=== PATIENT | male | born 1970 | race Caucasian/White ===

== ENCOUNTER 2016-12-19 12:09 | Emergency (ER) | payer MEDICAID ==
[2016-12-19 12:57] LABS: BASO % 0.5 % (0.0-1.0); EOS # 0.3 K/mm3 (0.0-0.50); EOS % 4.6 % (0.0-3.0); LARGE UNSTAINED CELL # 0.2 K/mm3 (0.0-0.4); LARGE UNSTAINED CELL % 2.1 % (0.0-4.0); LYMPH # 1.9 K/mm3 (1.5-4.5); MEAN CORPUSCULAR HEMOGLOBIN 32.2 pg (27.0-33.0); MEAN CORPUSCULAR HGB CONC 34.8 g/dl (32.0-36.5); MEAN CORPUSCULAR VOLUME 92.4 fl (80.0-96.0); MONO # 0.5 K/mm3 (0.0-0.8); NEUTROPHILS # 4.5 K/mm3 (1.8-7.7); NEUTROPHILS % 60.7 % (36.0-66.0); PLATELET COUNT, AUTOMATED 226 k/mm3 (150-450); RED CELL DISTRIBUTION WIDTH 11.7 % (11.5-14.5); WHITE BLOOD COUNT 7.4 K/mm3 (4.0-10.0)
[2016-12-19 13:17] LABS: ALBUMIN/GLOBULIN RATIO 1.25 (1.00-1.93); ALKALINE PHOSPHATASE 71 U/L (45-117); ALT/SGPT 43 U/L (12-78); ANION GAP 7 MEQ/L (8-16); AST/SGOT 24 U/L (15-37); BILIRUBIN,DIRECT 0.1 MG/DL (0.0-0.2); BILIRUBIN,TOTAL 0.5 MG/DL (0.2-1.0); BLOOD UREA NITROGEN 14 MG/DL (7-18); CALCIUM LEVEL 8.5 MG/DL (8.5-10.1); CARBON DIOXIDE LEVEL 27 MEQ/L (21-32); CHLORIDE LEVEL 108 MEQ/L (98-107); CREATININE FOR GFR 0.89 MG/DL (0.70-1.30); GLOMERULAR FILTRATION RATE > 60.0 (>60); GLUCOSE, FASTING 91 MG/DL (70-105); POTASSIUM SERUM 4.1 MEQ/L (3.5-5.1); SODIUM LEVEL 142 MEQ/L (136-145); TOTAL PROTEIN 7.2 GM/DL (6.4-8.2)
[2016-12-19] MEDS ORDERED: KETOROLAC 30 MG/ML VIAL (J1885) As Ordered ONE (14:38)
[2016-12-19] MEDS ORDERED: ONDANSETRON 4MG/2ML VIAL (J2405) As Ordered ONE (14:38)
[2016-12-19 17:12] LABS: AMYLASE 62 U/L (25-115)
--- NOTE | 2016-12-19 19:42 | EDDOCDS ---
Nurse's Notes [facility] Name: Karan Mejía Age: 46 yrs Sex: Male : 1970 Arrival Date: 12/19/2016 Time: 12:09 Bed I5 / M5 Private MD: NO PRIMARY PHYSICIAN, . Diagnosis: Other abdominal pain-llq;Diarrhea, unspecified Presentation: 12/19 12:20 Presenting complaint: Patient states: "I have a pain in my left side lower abdomen". jf3 Pain started approx 2 weeks ago and have gotten progressively worse. Reports diarrhea x2 weeks, denies N/V. Adult Sepsis Screening: The patient does not have new or worsening altered mentation. Patient's respiratory rate is less than 22. Systolic blood pressure is greater than 100. Patient has a qSOFA score of 0- Negative Sepsis Screen. Suicide/Homicide risk assessment- the patient denies having any suicidal and/or homicidal ideations and does not present with any other emotional, behavioral or mental health complaints. Status: Patient is not a services executive or dependent. Transition of care: patient was not received from another setting of care. 12:20 Acuity: CLAUDIA Level 3 jf3 12:20 Method Of Arrival: Walkin/Carried/Asstd jf3 Triage Assessment: 12:23 General: Appears in no apparent distress, comfortable, Behavior is cooperative. Pain: jf3 Location: left lower quadrant Pain currently is 6 out of 10 on a pain scale. Pt Declines HIV testing. GI: Abdomen is non- distended Reports diarrhea, lower abdominal pain, Pain is 6 out of 10 on a pain scale. Denies nausea, vomiting. Historical: - Allergies: no known allergies; - Home Meds: 1. none - PMHx: none; - PSHx: none; - Social history: Smoking status: Patient uses tobacco products, heavy tobacco smoker. No barriers to communication noted, The patient speaks fluent Georgian. - Family history: Not pertinent. - : The pt / caregiver states he / she is not on anticoagulants. Home medication list is obtained from the patient. - Exposure Risk Screening:: None identified. Screenin:34 Screening information is obtained from the patient. Primary language is Georgian. Fall jam1 risk: No risks identified. Assistance ADL's: requires no assistance with activities of daily living. Abuse/DV Screen: The patient / caregiver reports he/she is: not in a situation that causes fear, pain or injury. Nutritional screening: No deficits noted. Exposure Risk Screening: None identified. Advance Directives: Currently, there is no health care proxy. There is no active DNR order. There is no living will. There is no Power of Inspector Returned Materials. Advance directive information has not previously been placed in an [facility] medical record. Further advance directive information is declined. home support is adequate. Assessment: 14:46 General: Appears in no apparent distress, comfortable, Behavior is appropriate for age, dsf cooperative, laughing . Pain: Location: left upper quadrant Pain currently is 6 out of 10 on a pain scale. Quality of pain is described as just hurts. Neurological: Level of Consciousness is awake, alert, Oriented to person, place, time. Cardiovascular: Capillary refill < 3 seconds Heart tones S1 S2 present. Respiratory: Airway is patent Respiratory effort is even, unlabored, Respiratory pattern is regular, symmetrical, Breath sounds are clear bilaterally. GI: Abdomen is non- distended Bowel sounds present X 4 quads. Abd is soft X 4 quads Abd is tender to palpation in left upper quadrant. Derm: Skin is pink, warm & dry. 14:47 General: pt refused IV and IV medications. provider notified . dsf 15:46 General: Appears in no apparent distress, comfortable, Behavior is appropriate for age, dsf cooperative. Neurological: Level of Consciousness is awake, alert. Cardiovascular: Capillary refill < 3 seconds. Respiratory: Airway is patent Respiratory effort is even, unlabored, Respiratory pattern is regular, symmetrical. Derm: Skin is pink, warm & dry. 16:46 Adult Sepsis Screening: The patient does not have new or worsening altered mentation. dsf Patient's respiratory rate is less than 22. Systolic blood pressure is greater than 100. Patient has a qSOFA score of 0- Negative Sepsis Screen. General: Appears in no apparent distress, Behavior is appropriate for age, cooperative. Neurological: Level of Consciousness is awake, alert. Cardiovascular: Capillary refill < 3 seconds. Respiratory: Airway is patent Respiratory effort is even, unlabored, Respiratory pattern is regular, symmetrical. Derm: Skin is pink, warm & dry. 17:45 General: Appears in no apparent distress, comfortable, Behavior is appropriate for age, dsf cooperative. Pain: Location: left upper quadrant. Neurological: Level of Consciousness is awake, alert. Cardiovascular: Capillary refill < 3 seconds. Respiratory: Airway is patent Respiratory effort is even, unlabored, Respiratory pattern is regular, symmetrical. Derm: Skin is pink, warm & dry. 18:28 Adult Sepsis Screening: The patient does not have new or worsening altered mentation. dsf Patient's respiratory rate is less than 22. Systolic blood pressure is greater than 100. Patient has a qSOFA score of 0- Negative Sepsis Screen. General: Appears in no apparent distress, comfortable, Behavior is appropriate for age, cooperative. Pain: Location: left upper quadrant Pain currently is 3 out of 10 on a pain scale. Neurological: Level of Consciousness is awake, alert, Oriented to person, place, time. Cardiovascular: Capillary refill < 3 seconds Heart tones S1 S2 present. Respiratory: Airway is patent Respiratory effort is even, unlabored, Respiratory pattern is regular, symmetrical, Breath sounds are clear bilaterally. GI: Abdomen is non- distended Bowel sounds present X 4 quads. Abd is soft and non tender X 4 quads. Derm: Skin is pink, warm & dry. 18:54 General: Dr. Gutierrez in room examining patient . dsf 19:39 General: Appears in no apparent distress, comfortable, Behavior is appropriate for age, cjh cooperative, denies pain and awaiting discharge, reviewed instructions with patient who verbalizes understanding, denies further needs and declines offer of additional assistance. Vital Signs: 12:11 BP 113 / 79; Pulse 73; Resp 18 S; Temp 97.6(O); Pulse Ox 99% on R/A; Weight 79.38 kg gr2 (R); Height 5 ft. 8 in. (172.72 cm) (R); Pain 7/10; 17:36 BP 125 / 72; Pulse 72; Resp 20; Temp 98.0; Pulse Ox 99% ; Pain 4/10; jam1 19:32 BP 143 / 95; Pulse 75; Resp 20; Temp 99.8(TE); Pulse Ox 94% on R/A; Pain 0/10; kb5 12:11 Body Mass Index 26.61 (79.38 kg, 172.72 cm) gr2 Vitals: 12:11 Log In Time: December 19, 2016 at 12:11. gr2 ED Course: 12:10 Patient visited by Kacey Rios. gr2 12:10 Patient moved to Waiting gr2 12:11 NO PRIMARY PHYSICIAN, . is Private Physician. gr2 12:13 Patient visited by Kacey Rios. gr2 12:13 Patient moved to Pre RCE gr2 12:22 Triage Initiated jf3 12:45 Labs drawn. (by ED staff). Sent per order to lab. sew 12:46 Patient visited by Shante Chandler. sew 12:46 BMP Sent. sew 12:46 CBC with Diff Sent. sew 12:46 Lipase Sent. sew 12:46 Liver Profile Sent. sew 13:10 Patient moved to Triage 3 jf3 14:29 Arleth Crump PA-C is PHCP. ef1 14:29 Noel Haque MD is Attending Physician. ef1 14:29 Patient visited by Arleth Crump PA-C. ef1 14:34 Patient moved to I5 / M5 kr3 14:36 Urine Culture Sent. jf3 14:36 UA Sent. jf3 14:47 Patient visited by Smitha Morataya RN. dsf 14:53 [facility] Payment Agreement was scanned into [employer] and attached to record. jls1 15:29 Patient visited by Arleth Crump PA-C. ef1 16:18 Patient visited by Arleth Crump PA-C. ef1 16:[address] dsf 16:26 Patient moved to I5 / M5 dsf 16:40 Patient visited by Arleth Crump PA-C. ef1 17:12 Patient visited by Shakila Andrade PCA. jam1 17:29 Patient visited by Arleth Crump PA-C. ef1 17:45 Patient visited by Arleth Crump PA-C. ef1 17:51 PHCP role handed off by Arleth Crump PA-C dt4 17:51 Angelica Gonzalez PA-C is PHCP. dt4 18:29 Patient visited by Smitha Morataya RN. dsf 19:21 Robert Gutierrez is Referral Physician. dt4 19:21 [facility] is Referral Physician. dt4 19:33 Patient visited by Georges Quintero PCA. kb5 19:39 The patient / caregiver is instructed regarding the plan of care and ED course. cj 19:39 No IV's were initiated during this patient's visit. No procedures done that require [facility] assistance. Administered Medications: 14:46 Not Given (Patient Refused): NS 0.9% 1000 ml IV at bolus once dsf 14:46 Not Given (Patient Refused): ketorolac 30 mg IVP once dsf 14:46 Not Given (Patient Refused): Ondansetron 4 mg IVP once dsf Order Results: Lab Order: BMP; SPEC'M 12/19/16 12:45 Test: GLUCOSE, FASTING; Value: 91; Range: 70-105; Units: MG/DL; Status: F Test: BLOOD UREA NITROGEN; Value: 14; Range: 7-18; Units: MG/DL; Status: F Test: CREATININE FOR GFR; Value: 0.89; Range: 0.70-1.30; Units: MG/DL; Status: F Test: GLOMERULAR FILTRATION RATE; Value: > 60.0; Range: >60; Status: F Test: SODIUM LEVEL; Value: 142; Range: 136-145; Units: MEQ/L; Status: F Test: POTASSIUM SERUM; Value: 4.1; Range: 3.5-5.1; Units: MEQ/L; Status: F Test: CHLORIDE LEVEL; Value: 108; Range: 98-107; Abnormal: Above high normal; Units: MEQ/L; Status: F Test: CARBON DIOXIDE LEVEL; Value: 27; Range: 21-32; Units: MEQ/L; Status: F Test: ANION GAP; Value: 7; Range: 8-16; Abnormal: Below low normal; Units: MEQ/L; Status: F Test: CALCIUM LEVEL; Value: 8.5; Range: 8.5-10.1; Units: MG/DL; Status: F Test Note: ; Units are mL/min/1.73 m2 Chronic Kidney Disease Staging per NKF: Stage I & II GFR >=60 Normal to Mildly Decreased Stage III GFR 30-59 Moderately Decreased Stage IV GFR 15-29 Severely Decreased Stage V GFR <15 Very Little GFR Left ESRD GFR <15 on PLUG STITCHER Lab Order: CBC with Diff; SPEC'M 12/19/16 12:45 Test: WHITE BLOOD COUNT; Value: 7.4; Range: 4.0-10.0; Units: K/mm3; Status: F Test: RED BLOOD COUNT; Value: 4.78; Range: 4.30-6.10; Units: M/mm3; Status: F Test: HEMOGLOBIN; Value: 15.4; Range: 14.0-18.0; Units: g/dl; Status: F Test: HEMATOCRIT; Value: 44.2; Range: 42.0-52.0; Units: %; Status: F Test: MEAN CORPUSCULAR VOLUME; Value: 92.4; Range: 80.0-96.0; Units: fl; Status: F Test: MEAN CORPUSCULAR HEMOGLOBIN; Value: 32.2; Range: 27.0-33.0; Units: pg; Status: F Test: MEAN CORPUSCULAR HGB CONC; Value: 34.8; Range: 32.0-36.5; Units: g/dl; Status: F Test: RED CELL DISTRIBUTION WIDTH; Value: 11.7; Range: 11.5-14.5; Units: %; Status: F Test: PLATELET COUNT, AUTOMATED; Value: 226; Range: 150-450; Units: k/mm3; Status: F Test: NEUTROPHILS %; Value: 60.7; Range: 36.0-66.0; Units: %; Status: F Test: LYMPH %; Value: 25.0; Range: 24.0-44.0; Units: %; Status: F Test: MONO %; Value: 7.0; Range: 0.0-5.0; Abnormal: Above high normal; Units: %; Status: F Test: EOS %; Value: 4.6; Range: 0.0-3.0; Abnormal: Above high normal; Units: %; Status: F Test: BASO %; Value: 0.5; Range: 0.0-1.0; Units: %; Status: F Test: LARGE UNSTAINED CELL %; Value: 2.1; Range: 0.0-4.0; Units: %; Status: F Test: NEUTROPHILS #; Value: 4.5; Range: 1.8-7.7; Units: K/mm3; Status: F Test: LYMPH #; Value: 1.9; Range: 1.5-4.5; Units: K/mm3; Status: F Test: MONO #; Value: 0.5; Range: 0.0-0.8; Units: K/mm3; Status: F Test: EOS #; Value: 0.3; Range: 0.0-0.50; Units: K/mm3; Status: F Test: BASO #; Value: 0.0; Range: 0.0-0.2; Units: K/mm3; Status: F Test: LARGE UNSTAINED CELL #; Value: 0.2; Range: 0.0-0.4; Units: K/mm3; Status: F Lab Order: Lipase; [facility] 12/19/16 12:45 Test: LIPASE; Value: 160; Range: 73-393; Units: U/L; Status: F Lab Order: Liver Profile; [facility] 12/19/16 12:45 Test: AST/SGOT; Value: 24; Range: 15-37; Units: U/L; Status: F Test: ALT/SGPT; Value: 43; Range: 12-78; Units: U/L; Status: F Test: ALKALINE PHOSPHATASE; Value: 71; Range: 45-117; Units: U/L; Status: F Test: BILIRUBIN,TOTAL; Value: 0.5; Range: 0.2-1.0; Units: MG/DL; Status: F Test: BILIRUBIN,DIRECT; Value: 0.1; Range: 0.0-0.2; Units: MG/DL; Status: F Test: TOTAL PROTEIN; Value: 7.2; Range: 6.4-8.2; Units: GM/DL; Status: F Test: ALBUMIN; Value: 4.0; Range: 3.2-5.2; Units: GM/DL; Status: F Test: ALBUMIN/GLOBULIN RATIO; Value: 1.25; Range: 1.00-1.93; Status: F Lab Order: UA; [facility] 12/19/16 14:35 Test: APPEARANCE, URINE; Value: CLEAR; Range: CLEAR; Status: F Test: COLOR, URINE; Value: STRAW; Range: YELLOW; Status: F Test: PH,URINE; Value: 6.0; Range: 5.0-9.0; Units: UNITS; Status: F Test: SPECIFIC GRAVITY URINE AUTO; Value: 1.004; Range: 1.002-1.035; Status: F Test: PROTEIN, URINE AUTO; Value: NEGATIVE; Range: NEGATIVE; Units: mg/dL; Status: F Test: GLUCOSE, URINE (UA) AUTO; Value: NEGATIVE; Range: NEGATIVE; Units: mg/dL; Status: F Test: KETONE, URINE AUTO; Value: NEGATIVE; Range: NEGATIVE; Units: mg/dL; Status: F Test: UROBILINOGEN, URINE AUTO; Value: 0.2; Range: 0.0-2.0; Units: mg/dL; Status: F Test: BILIRUBIN, URINE AUTO; Value: NEGATIVE; Range: NEGATIVE; Status: F Test: NITRITE, URINE AUTO; Value: NEGATIVE; Range: NEGATIVE; Status: F Test: LEUKOCYTE ESTERASE, URINE AUTO; Value: NEGATIVE; Range: NEGATIVE; Status: F Test: BLOOD, URINE BLOOD; Value: NEGATIVE; Range: NEGATIVE; Status: F Test: WBC, URINE AUTO; Value: 0; Range: 0-3; Units: /HPF; Status: F Test: RBC, URINE AUTO; Value: 1; Range: 0-3; Units: /HPF; Status: F Test: BACTERIA, URINE AUTO; Value: NEGATIVE; Range: NEGATIVE; Status: F Test: SQUAMOUS EPITHELIAL CELL UR AU; Value: 0; Range: 0-6; Units: /HPF; Status: F Test: HYALINE CAST, URINE AUTO; Value: 0; Range: 0-1; Units: /LPF; Status: F Lab Order: AMYLASE; SPEC'M 12/19/16 12:45 Test: AMYLASE; Value: 62; Range: 25-115; Units: U/L; Status: F Outcome: 19:22 Discharge ordered by Provider. dt4 19:39 Discharge Assessment: Patient awake, alert and oriented x 3. No cognitive and/or [facility] functional deficits noted. Patient verbalized understanding of disposition instructions. patient administered narcotics - no. The following High Risk Discharge criteria are identified: None. Discharged to home ambulatory, with significant other. Condition: good Condition: stable Condition: improved. Discharge instructions given to patient, Instructed on discharge instructions, follow up and referral plans. Demonstrated understanding of instructions, Pt was receptive of discharge instructions/ teaching. CT Study completed. Ultrasound Study completed. Property :Personal belongings accompany Pt. 19:42 Patient left the ED. [facility] Signatures: Shakila Andrade, ENGINEERING MATHEMATICIAN ENGINEERING MATHEMATICIAN jam1 Charito Pillai,RN RN kr3 Georges Quintero, ENGINEERING MATHEMATICIAN ENGINEERING MATHEMATICIAN kb5 Arleth Crump PA-C PA-C ef1 Smitha Morataya,RN RN dsf Shakila Davies,CHANEL RN cj Shante Chandler Gainslee gr2 Angelica Gonzalez PA-C PA-C dt4 Sarah Quiroz jls1 Kilo Kamara,RN RN jf3 Corrections: (The following items were deleted from the chart) 14:47 14:47 General: pt refused IV and IV medications. dsf dsf MTDD
--- NOTE | 2016-12-19 19:42 | EDDOCDS ---
Physician Documentation [facility] Name: Karan Mejía Age: 46 yrs Sex: Male : 1970 Arrival Date: 12/19/2016 Time: 12:09 Bed I5 / M5 Private MD: NO PRIMARY PHYSICIAN, . Disposition: 12/19/16 19:22 Discharged to Home/Self Care. Impression: Other abdominal pain - llq, Diarrhea, unspecified. - Condition is Stable. - Discharge Instructions: Abdominal Pain, Adult, Diarrhea. - Referral List Call for Appointment, Medication Reconciliation, Local Pharmacy Hours form. - Follow up: Emergency Department; When: As needed; Reason: Worsening of conditions. Follow up: [facility]; When: As needed; Reason: Wound/Symptom Recheck, Recheck today's complaints, Worsening of conditions, Continuance of care. Follow [facility]: [facility]; When: Call to arrange an appointment; Reason: Recheck today's complaints, Continuance of care, To establish care. - Problem is new. - Symptoms are unchanged. - Notes: PLEASE CALL THE PRIMARY CAREOFFICE AND SCHEDULE AN APPOINTMENT TO BE SEEN. IT IS IMPORTANT TO HAVE A PRIMARY CARE PROVIDER TO FOLLOW UP WITH AFTER ANY EMERGENCY ROOM VISIT. ANY WORSENING OF SYMPTOMS, PLEASE RETURN TO THE ER. Historical: - Allergies: no known allergies; - Home Meds: 1. none - PMHx: none; - PSHx: none; - Social history: Smoking status: Patient uses tobacco products, heavy tobacco smoker. No barriers to communication noted, The patient speaks fluent Greek. - Family history: Not pertinent. - : The pt / caregiver states he / she is not on anticoagulants. Home medication list is obtained from the patient. - Exposure Risk Screening:: None identified. Vital Signs: 12/19 12:11 BP 113 / 79; Pulse 73; Resp 18 S; Temp 97.6(O); Pulse Ox 99% on R/A; Weight 79.38 kg / gr2 175 lbs (R); Height 5 ft. 8 in. (172.72 cm) (R); Pain 7/10; 17:36 BP 125 / 72; Pulse 72; Resp 20; Temp 98.0; Pulse Ox 99% ; Pain 4/10; jam1 19:32 BP 143 / 95; Pulse 75; Resp 20; Temp 99.8(TE); Pulse Ox 94% on R/A; Pain 0/10; kb5 12:11 Body Mass Index 26.61 (79.38 kg, 172.72 cm) gr2 MDM: 12:35 If pre-RCE wait time >60 minutes, inform reg. staff to do full reg ordered. ar2 12:35 Undress patient appropriately for examination ordered. ar2 12:36 BMP Ordered. EDMS 12:36 CBC with Diff Ordered. EDMS 12:36 Lipase Ordered. EDMS 12:36 Liver Profile Ordered. EDMS 12:37 GASTROINTESTINAL (GI) PANEL Ordered. EDMS 14:29 BMP Reviewed. ef1 14:29 CBC with Diff Reviewed. ef1 14:29 Lipase Reviewed. ef1 14:29 Liver Profile Reviewed. ef1 14:34 NS 0.9% 1000 ml IV at bolus once ordered. ef1 14:34 ketorolac 30 mg IVP once ordered. ef1 14:34 Ondansetron 4 mg IVP once ordered. ef1 14:35 CT ABD & PELVIS: No Contrast Ordered. EDMS 14:35 UA Ordered. EDMS 14:35 Urine Culture Ordered. EDMS 14:41 Financial registration complete. jls1 14:53 [facility] Payment Agreement was scanned into [employer] and attached to record. jls1 16:45 UA Reviewed. ef1 16:47 Gallbladder US Ordered. EDMS 17:05 AMYLASE Ordered. EDMS 18:56 ED course: DR. MALDONADO IN ROOM WITH PT AT THIS TIME.. dt4 Administered Medications: 14:46 Not Given (Patient Refused): NS 0.9% 1000 ml IV at bolus once dsf 14:46 Not Given (Patient Refused): ketorolac 30 mg IVP once dsf 14:46 Not Given (Patient Refused): Ondansetron 4 mg IVP once dsf Signatures: Dispatcher [employer] EDMS Donavan Sanders PA-C PA-C ar2 Arleth Crump PA-C PA-C ef1 Shakila DaviesRN RN [facility] Angelica Gonzalez PA-C PA-C dt4 Sarah Quiroz jls1 Kilo Kamara RN RN jf3 Smitha Morataya RN dsf The chart was reviewed and I authenticate all verbal orders and agree with the evaluation and treatment provided.Corrections: (The following items were deleted from the chart) 12:36 12:35 If pt is female >10yo <50yo order UCG ordered. ar2 sew 12:37 12:36 GASTROINTESTINAL (GI) PANEL+STORM ordered. EDMS EDMS 14:46 14:34 IV Saline Lock ordered. ef1 dsf 17:05 16:50 AMYLASE+LAB ordered. EDMS EDMS Attachments: 14:53 [facility] Payment Agreement jls1 MTDD
--- NOTE | 2016-12-20 08:44 | REP ---
CT study of the abdomen and pelvis without IV or oral but with oral contrast: History: Left upper quadrant pain. No comparison studies. Findings: Digital lead informatica developer radiographs are unremarkable. The lung bases are clear. The liver and the spleen are normal in size and homogeneous in texture. Gallbladder is mildly dilated, but otherwise unremarkable. No adrenal lesion is seen. Pancreas is unremarkable. No retroperitoneal mass or adenopathy is seen. There is no evidence of intrarenal calculus or hydronephrosis on either side. A normal oral barium filled appendix is seen in the right central abdomen. Small and large intestinal bowel loops are unremarkable. No obstructive lesion is seen. Seminal vesicles, prostate and urinary bladder appear intact. There are a few dystrophic calcifications in the prostate. No abdominal wall defect is seen. No bony destructive lesion is observed. Impression: Mildly distended gallbladder, otherwise unremarkable CT study of the abdomen and pelvis. Normal appendix seen. Signed by Karan Hill MD 12/20/2016 09:04 A
--- NOTE | 2016-12-20 10:04 | CR ---
DATE OF CONSULTATION: 12/19/2016 REASON FOR CONSULTATION: Left lower quadrant abdominal pain with increased intestinal rumbling over the last two weeks. HISTORY OF PRESENT ILLNESS: The patient is a 46-year-old pleasant man who presented to the emergency department. He complained of some pain in his left lower quadrant. This started about two weeks ago and he reports it has been intermittent but has gotten somewhat worse. He has also noticed that he has had some increased intestinal sounds described as a loud growling at times. He apparently told the emergency room (ER) physician workforce development assistant (CLARIS[employer]) that he had been having some diarrhea. He denies any nausea or vomiting. He has had no fevers or chills. The discomfort in his left lower quadrant waxes and wanes. This sometimes resolves but may last for as long as a day or two in a constant state. He has not found any relationship between food intake and his discomfort. He has not had any rectal bleeding. He is generally having daily bowel movements. He, as previously noted, has not had any nausea or vomiting. In the emergency department where he presented at approximately 1209, he underwent evaluation with some laboratory studies. He had a complete blood count (CBC) that showed a normal white count and differential. His chemistry profile was normal for all intents and purposes and his liver function tests were also normal. A urinalysis was without abnormality. Amylase and lipase were normal. He had a CT scan of the abdomen that according to the radiologist showed the gallbladder was perhaps somewhat distended. A followup gallbladder ultrasound showed a gallstone in the region of the gallbladder neck, but without any gallbladder wall thickening or inflammatory changes. I was asked to evaluate the patient regarding his complaints and findings. ALLERGIES: The patient denies any known drug allergies. HOME MEDICATIONS: None. PAST MEDICAL HISTORY: Negative. He denies any active ongoing problems. PRIMARY CARE PROVIDER: He has no primary physician or healthcare provider. PAST SURGICAL HISTORY: Entirely negative. SOCIAL HISTORY: The patient reports that he is a smoker of tobacco products. He denies excessive alcohol intake. He is accompanied by a significant other. REVIEW OF SYSTEMS: The patient denies any history of seizure, stroke, or severe headaches. He has had no chest pain or palpitations. He denies cough, wheezing, or sputum production. He has had no recent sore throat or other upper respiratory infection symptoms. He denies any history of hepatitis, jaundice, or peptic ulcer disease. He has no bone or joint problems. There is no history of deep vein thrombosis (DVT) or pulmonary embolus. There is no history of dysuria or hematuria. PHYSICAL EXAMINATION: Reveals a very pleasant man sitting quietly in a chair, not appearing in significant discomfort. He is alert, oriented, and cooperative. His most recent vital signs showed a blood pressure of 125/72 with a pulse of 72, respirations of 20, temperature was 98 with a weight of 79 kg and a height of 68 inches giving him a body mass index (BMI) of approximately 27. His skin is warm and dry. Sclerae are anicteric. Mucous membranes are moist. Neck is supple without mass or bruit. Heart examination shows a regular rate and rhythm. The lungs are clear. The abdomen is perhaps very mildly protuberant. He has positive bowel sounds. There is no tympany to percussion. There is no tenderness to percussion. The abdomen is soft throughout without apparent mass and there is no definite tenderness on palpation. No masses appreciated. His laboratory studies are reviewed as noted previously. His CT scan imaging, I reviewed myself. He does have some contrast-type material within the colon and does admit to having had some Pepto-Bismol and Kaopectate over the last couple of days. The contrast is scattered in the colon. The colon does not appear thickened or inflamed. The appendix is long and thin and well seen in the right lower quadrant. There is no distension of the bowel loops. There is no free fluid and no free air. IMPRESSION: 1. Left lower quadrant pain. 2. Increased intestinal sounds. 3. Gallstone without evidence of acute cholecystitis. RECOMMENDATIONS: At this point, the patient has symptoms that sound intestine-related and are primarily localized to his left lower quadrant. The only definite finding on his laboratories and imaging is a stone in the neck of his gallbladder, but he has no inflammatory changes within the gallbladder itself. The common bile duct is not dilated. His liver function tests are normal and his symptoms are in the left lower quadrant and seem unlikely to be related to his gallstones. I do not think that there is any indication for admission or observation status. I discussed with the patient the many things that we did not identify on his testing. I advised him that his intestinal symptoms are likely to be related to some self-limited conditions such as a viral illness. I have recommended that he monitor his symptoms and return on an as-needed basis if he has worsening symptoms or signs. He could certainly followup with me regarding his gallstones if he develops symptoms that are more typical for biliary colic. The patient agreed that he will followup on an as-needed basis.
--- NOTE | 2016-12-20 16:23 | REP ---
Abdominal upper quadrant ultrasound: The gallbladder is distended. There is a non mobile gallbladder calculus in the gallbladder neck. There is no gallbladder wall thickening or pericholecystic fluid. There is no tenderness to transducer pressure. There is no intrahepatic biliary duct dilatation. The common biliary duct measures 6.1 mm diameter which is upper normal. The pancreas is obscured by bowel. There is no right renal hydronephrosis or calculus. Right kidney is normal size 12.3 cm cranial caudad. Signed by Ramesh Yost MD 12/20/2016 04:14 P
--- NOTE | 2016-12-21 20:42 | EDDOCDS ---
Physician Documentation [facility] Name: Karan Mejía Age: 46 yrs Sex: Male : 1970 Arrival Date: 12/19/2016 Time: 12:09 Bed I5 / M5 Private MD: NO PRIMARY PHYSICIAN, . Disposition: 12/19/16 19:22 Discharged to Home/Self Care. Impression: Other abdominal pain - llq, Diarrhea, unspecified. - Condition is Stable. - Discharge Instructions: Abdominal Pain, Adult, Diarrhea. - Referral List Call for Appointment, Medication Reconciliation, Local Pharmacy Hours form. - Follow up: Emergency Department; When: As needed; Reason: Worsening of conditions. Follow up: [facility]; When: As needed; Reason: Wound/Symptom Recheck, Recheck today's complaints, Worsening of conditions, Continuance of care. [facility]; When: Call to arrange an appointment; Reason: Recheck today's complaints, Continuance of care, To establish care. - Problem is new. - Symptoms are unchanged. - Notes: PLEASE CALL THE PRIMARY CAREOFFICE AND SCHEDULE AN APPOINTMENT TO BE SEEN. IT IS IMPORTANT TO HAVE A PRIMARY CARE PROVIDER TO FOLLOW UP WITH AFTER ANY EMERGENCY ROOM VISIT. ANY WORSENING OF SYMPTOMS, PLEASE RETURN TO THE ER. Historical: - Allergies: no known allergies; - Home Meds: 1. none - PMHx: none; - PSHx: none; - Social history: Smoking status: Patient uses tobacco products, heavy tobacco smoker. No barriers to communication noted, The patient speaks fluent [place]. - Family history: Not pertinent. - : The pt / caregiver states he / she is not on anticoagulants. Home medication list is obtained from the patient. - Exposure Risk Screening:: None identified. Vital Signs: 12/19 12:11 BP 113 / 79; Pulse 73; Resp 18 S; Temp 97.6(O); Pulse Ox 99% on R/A; Weight 79.38 kg / gr2 175 lbs (R); Height 5 ft. 8 in. (172.72 cm) (R); Pain 7/10; 17:36 BP 125 / 72; Pulse 72; Resp 20; Temp 98.0; Pulse Ox 99% ; Pain 4/10; jam1 19:32 BP 143 / 95; Pulse 75; Resp 20; Temp 99.8(TE); Pulse Ox 94% on R/A; Pain 0/10; kb5 12:11 Body Mass Index 26.61 (79.38 kg, 172.72 cm) gr2 MDM: 12:35 If pre-RCE wait time >60 minutes, inform reg. staff to do full reg ordered. ar2 12:35 Undress patient appropriately for examination ordered. ar2 12:36 BMP Ordered. EDMS 12:36 CBC with Diff Ordered. EDMS 12:36 Lipase Ordered. EDMS 12:36 Liver Profile Ordered. EDMS 12:37 GASTROINTESTINAL (GI) PANEL Ordered. EDMS 14:29 BMP Reviewed. ef1 14:29 CBC with Diff Reviewed. ef1 14:29 Lipase Reviewed. ef1 14:29 Liver Profile Reviewed. ef1 14:34 NS 0.9% 1000 ml IV at bolus once ordered. ef1 14:34 ketorolac 30 mg IVP once ordered. ef1 14:34 Ondansetron 4 mg IVP once ordered. ef1 14:35 CT ABD & PELVIS: No Contrast Ordered. EDMS 14:35 UA Ordered. EDMS 14:35 Urine Culture Ordered. EDMS 14:41 Financial registration complete. jls1 14:53 [facility] [place] was scanned into [employer] and attached to record. jls1 16:45 UA Reviewed. ef1 16:47 Gallbladder US Ordered. EDMS 17:05 AMYLASE Ordered. EDMS 18:56 ED course: DR. MALDONADO IN ROOM WITH PT AT THIS TIME.. dt4 12/20 15:45 T-Sheet-- Draft Copy was scanned into [employer] and attached to record. klr Administered Medications: 12/19 14:46 Not Given (Patient Refused): NS 0.9% 1000 ml IV at bolus once dsf 14:46 Not Given (Patient Refused): ketorolac 30 mg IVP once dsf 14:46 Not Given (Patient Refused): Ondansetron 4 mg IVP once dsf Signatures: Dispatcher [employer] EDMS Donavan Sanders PA-C PA-C ar2 Arleth Crump PA-C PA-C ef1 Shakila Davies RN RN [facility] Angelica Gonzalez PA-C PA-C dt4 Sarah Quiroz jls1 Kilo Kamara RN RN jf3 Kate Trent Desiree RN dsf The chart was reviewed and I authenticate all verbal orders and agree with the evaluation and treatment provided.Corrections: (The following items were deleted from the chart) 12:36 12:35 If pt is female >10yo <50yo order UCG ordered. ar2 sew 12:37 12:36 GASTROINTESTINAL (GI) PANEL+STORM ordered. EDMS EDMS 14:46 14:34 IV Saline Lock ordered. ef1 dsf 17:05 16:50 AMYLASE+LAB ordered. EDMS EDMS Attachments: 14:53 [facility] Payment Agreement jls1 12/20 15:45 T-Sheet-- Draft Copy klr Chart Complete MTDD
--- NOTE | 2016-12-21 20:42 | EDDOCDS ---
Nurse's Notes [facility] Name: Karan Mejía Age: 46 yrs Sex: Male : 1970 Arrival Date: 12/19/2016 Time: 12:09 Bed I5 / M5 Private MD: NO PRIMARY PHYSICIAN, . Diagnosis: Other abdominal pain-llq;Diarrhea, unspecified Presentation: 12/19 12:20 Presenting complaint: Patient states: "I have a pain in my left side lower abdomen". jf3 Pain started approx 2 weeks ago and have gotten progressively worse. Reports diarrhea x2 weeks, denies N/V. Adult Sepsis Screening: The patient does not have new or worsening altered mentation. Patient's respiratory rate is less than 22. Systolic blood pressure is greater than 100. Patient has a qSOFA score of 0- Negative Sepsis Screen. Suicide/Homicide risk assessment- the patient denies having any suicidal and/or homicidal ideations and does not present with any other emotional, behavioral or mental health complaints. Status: Patient is not a service associate or dependent. Transition of care: patient was not received from another setting of care. 12:20 Acuity: CLAUDIA Level 3 jf3 12:20 Method Of Arrival: Walkin/Carried/Asstd jf3 Triage Assessment: 12:23 General: Appears in no apparent distress, comfortable, Behavior is cooperative. Pain: jf3 Location: left lower quadrant Pain currently is 6 out of 10 on a pain scale. Pt Declines HIV testing. GI: Abdomen is non- distended Reports diarrhea, lower abdominal pain, Pain is 6 out of 10 on a pain scale. Denies nausea, vomiting. Historical: - Allergies: no known allergies; - Home Meds: 1. none - PMHx: none; - PSHx: none; - Social history: Smoking status: Patient uses tobacco products, heavy tobacco smoker. No barriers to communication noted, The patient speaks fluent Arabic. - Family history: Not pertinent. - : The pt / caregiver states he / she is not on anticoagulants. Home medication list is obtained from the patient. - Exposure Risk Screening:: None identified. Screenin:34 Screening information is obtained from the patient. Primary language is Arabic. Fall jam1 risk: No risks identified. Assistance ADL's: requires no assistance with activities of daily living. Abuse/DV Screen: The patient / caregiver reports he/she is: not in a situation that causes fear, pain or injury. Nutritional screening: No deficits noted. Exposure Risk Screening: None identified. Advance Directives: Currently, there is no health care proxy. There is no active DNR order. There is no living will. There is no Power of [place]. Advance directive information has not previously been placed in an [facility] medical record. Further advance directive information is declined. home support is adequate. Assessment: 14:46 General: Appears in no apparent distress, comfortable, Behavior is appropriate for age, dsf cooperative, laughing . Pain: Location: left upper quadrant Pain currently is 6 out of 10 on a pain scale. Quality of pain is described as just hurts. Neurological: Level of Consciousness is awake, alert, Oriented to person, place, time. Cardiovascular: Capillary refill < 3 seconds Heart tones S1 S2 present. Respiratory: Airway is patent Respiratory effort is even, unlabored, Respiratory pattern is regular, symmetrical, Breath sounds are clear bilaterally. GI: Abdomen is non- distended Bowel sounds present X 4 quads. Abd is soft X 4 quads Abd is tender to palpation in left upper quadrant. Derm: Skin is pink, warm & dry. 14:47 General: pt refused IV and IV medications. provider notified . dsf 15:46 General: Appears in no apparent distress, comfortable, Behavior is appropriate for age, dsf cooperative. Neurological: Level of Consciousness is awake, alert. Cardiovascular: Capillary refill < 3 seconds. Respiratory: Airway is patent Respiratory effort is even, unlabored, Respiratory pattern is regular, symmetrical. Derm: Skin is pink, warm & dry. 16:46 Adult Sepsis Screening: The patient does not have new or worsening altered mentation. dsf Patient's respiratory rate is less than 22. Systolic blood pressure is greater than 100. Patient has a qSOFA score of 0- Negative Sepsis Screen. General: Appears in no apparent distress, Behavior is appropriate for age, cooperative. Neurological: Level of Consciousness is awake, alert. Cardiovascular: Capillary refill < 3 seconds. Respiratory: Airway is patent Respiratory effort is even, unlabored, Respiratory pattern is regular, symmetrical. Derm: Skin is pink, warm & dry. 17:45 General: Appears in no apparent distress, comfortable, Behavior is appropriate for age, dsf cooperative. Pain: Location: left upper quadrant. Neurological: Level of Consciousness is awake, alert. Cardiovascular: Capillary refill < 3 seconds. Respiratory: Airway is patent Respiratory effort is even, unlabored, Respiratory pattern is regular, symmetrical. Derm: Skin is pink, warm & dry. 18:28 Adult Sepsis Screening: The patient does not have new or worsening altered mentation. dsf Patient's respiratory rate is less than 22. Systolic blood pressure is greater than 100. Patient has a qSOFA score of 0- Negative Sepsis Screen. General: Appears in no apparent distress, comfortable, Behavior is appropriate for age, cooperative. Pain: Location: left upper quadrant Pain currently is 3 out of 10 on a pain scale. Neurological: Level of Consciousness is awake, alert, Oriented to person, place, time. Cardiovascular: Capillary refill < 3 seconds Heart tones S1 S2 present. Respiratory: Airway is patent Respiratory effort is even, unlabored, Respiratory pattern is regular, symmetrical, Breath sounds are clear bilaterally. GI: Abdomen is non- distended Bowel sounds present X 4 quads. Abd is soft and non tender X 4 quads. Derm: Skin is pink, warm & dry. 18:54 General: Dr. Gutierrez in room examining patient . dsf 19:39 General: Appears in no apparent distress, comfortable, Behavior is appropriate for age, cjh cooperative, denies pain and awaiting discharge, reviewed instructions with patient who verbalizes understanding, denies further needs and declines offer of additional assistance. Vital Signs: 12:11 BP 113 / 79; Pulse 73; Resp 18 S; Temp 97.6(O); Pulse Ox 99% on R/A; Weight 79.38 kg gr2 (R); Height 5 ft. 8 in. (172.72 cm) (R); Pain 7/10; 17:36 BP 125 / 72; Pulse 72; Resp 20; Temp 98.0; Pulse Ox 99% ; Pain 4/10; jam1 19:32 BP 143 / 95; Pulse 75; Resp 20; Temp 99.8(TE); Pulse Ox 94% on R/A; Pain 0/10; kb5 12:11 Body Mass Index 26.61 (79.38 kg, 172.72 cm) gr2 Vitals: 12:11 Log In Time: December 19, 2016 at 12:11. gr2 ED Course: 12:10 Patient visited by Kacey Rios. gr2 12:10 Patient moved to Waiting gr2 12:11 NO PRIMARY PHYSICIAN, . is Private Physician. gr2 12:13 Patient visited by Kacey Rios. gr2 12:13 Patient moved to Pre RCE gr2 12:22 Triage Initiated jf3 12:45 Labs drawn. (by ED staff). Sent per order to lab. sew 12:46 Patient visited by Shante Chandler. sew 12:46 BMP Sent. sew 12:46 CBC with Diff Sent. sew 12:46 Lipase Sent. sew 12:46 Liver Profile Sent. sew 13:10 Patient moved to Triage 3 jf3 14:29 Arleth Crump PA-C is PHCP. ef1 14:29 Noel Haque MD is Attending Physician. ef1 14:29 Patient visited by Arleth Crump PA-C. ef1 14:34 Patient moved to I5 / M5 kr3 14:36 Urine Culture Sent. jf3 14:36 UA Sent. jf3 14:47 Patient visited by Smitha Morataya RN. dsf 14:53 [facility] Payment Agreement was scanned into [employer] and attached to record. jls1 15:29 Patient visited by Arleth Crump PA-C. ef1 16:18 Patient visited by Arleth Crump PA-C. ef1 16:[address] dsf 16:26 Patient moved to I5 / M5 dsf 16:40 Patient visited by Arleth Crump PA-C. ef1 17:12 Patient visited by Shakila Andrade PCA. jam1 17:29 Patient visited by Arleth Crump PA-C. ef1 17:45 Patient visited by Arleth Crump PA-C. ef1 17:51 PHCP role handed off by Arleth Crump PA-C dt4 17:51 Angelica Gonzalez PA-C is PHCP. dt4 18:29 Patient visited by Smitha Morataya RN. dsf 19:21 Robert Gutierrez is Referral Physician. dt4 19:21 [facility] is Referral Physician. dt4 19:33 Patient visited by Georges Quintero PCA. kb5 19:39 The patient / caregiver is instructed regarding the plan of care and ED course. cj 19:39 No IV's were initiated during this patient's visit. No procedures done that require [facility] assistance. 12/20 09:13 CT ABD & PELVIS: No Contrast Returned. EDMS 15:45 T-Sheet-- Draft Copy was scanned into [employer] and attached to record. klr 16:49 Gallbladder US Returned. EDMS Administered Medications: 12/19 14:46 Not Given (Patient Refused): NS 0.9% 1000 ml IV at bolus once dsf 14:46 Not Given (Patient Refused): ketorolac 30 mg IVP once dsf 14:46 Not Given (Patient Refused): Ondansetron 4 mg IVP once dsf Order Results: Lab Order: BMP; SPEC'M 12/19/16 12:45 Test: GLUCOSE, FASTING; Value: 91; Range: 70-105; Units: MG/DL; Status: F Test: BLOOD UREA NITROGEN; Value: 14; Range: 7-18; Units: MG/DL; Status: F Test: CREATININE FOR GFR; Value: 0.89; Range: 0.70-1.30; Units: MG/DL; Status: F Test: GLOMERULAR FILTRATION RATE; Value: > 60.0; Range: >60; Status: F Test: SODIUM LEVEL; Value: 142; Range: 136-145; Units: MEQ/L; Status: F Test: POTASSIUM SERUM; Value: 4.1; Range: 3.5-5.1; Units: MEQ/L; Status: F Test: CHLORIDE LEVEL; Value: 108; Range: 98-107; Abnormal: Above high normal; Units: MEQ/L; Status: F Test: CARBON DIOXIDE LEVEL; Value: 27; Range: 21-32; Units: MEQ/L; Status: F Test: ANION GAP; Value: 7; Range: 8-16; Abnormal: Below low normal; Units: MEQ/L; Status: F Test: CALCIUM LEVEL; Value: 8.5; Range: 8.5-10.1; Units: MG/DL; Status: F Test Note: ; Units are mL/min/1.73 m2 Chronic Kidney Disease Staging per NKF: Stage I & II GFR >=60 Normal to Mildly Decreased Stage III GFR 30-59 Moderately Decreased Stage IV GFR 15-29 Severely Decreased Stage V GFR <15 Very Little GFR Left ESRD GFR <15 on INSTRUCTIONAL SUPPORT ASSISTANT Lab Order: CBC with Diff; SPEC'M 12/19/16 12:45 Test: WHITE BLOOD COUNT; Value: 7.4; Range: 4.0-10.0; Units: K/mm3; Status: F Test: RED BLOOD COUNT; Value: 4.78; Range: 4.30-6.10; Units: M/mm3; Status: F Test: HEMOGLOBIN; Value: 15.4; Range: 14.0-18.0; Units: g/dl; Status: F Test: HEMATOCRIT; Value: 44.2; Range: 42.0-52.0; Units: %; Status: F Test: MEAN CORPUSCULAR VOLUME; Value: 92.4; Range: 80.0-96.0; Units: fl; Status: F Test: MEAN CORPUSCULAR HEMOGLOBIN; Value: 32.2; Range: 27.0-33.0; Units: pg; Status: F Test: MEAN CORPUSCULAR HGB CONC; Value: 34.8; Range: 32.0-36.5; Units: g/dl; Status: F Test: RED CELL DISTRIBUTION WIDTH; Value: 11.7; Range: 11.5-14.5; Units: %; Status: F Test: PLATELET COUNT, AUTOMATED; Value: 226; Range: 150-450; Units: k/mm3; Status: F Test: NEUTROPHILS %; Value: 60.7; Range: 36.0-66.0; Units: %; Status: F Test: LYMPH %; Value: 25.0; Range: 24.0-44.0; Units: %; Status: F Test: MONO %; Value: 7.0; Range: 0.0-5.0; Abnormal: Above high normal; Units: %; Status: F Test: EOS %; Value: 4.6; Range: 0.0-3.0; Abnormal: Above high normal; Units: %; Status: F Test: BASO %; Value: 0.5; Range: 0.0-1.0; Units: %; Status: F Test: LARGE UNSTAINED CELL %; Value: 2.1; Range: 0.0-4.0; Units: %; Status: F Test: NEUTROPHILS #; Value: 4.5; Range: 1.8-7.7; Units: K/mm3; Status: F Test: LYMPH #; Value: 1.9; Range: 1.5-4.5; Units: K/mm3; Status: F Test: MONO #; Value: 0.5; Range: 0.0-0.8; Units: K/mm3; Status: F Test: EOS #; Value: 0.3; Range: 0.0-0.50; Units: K/mm3; Status: F Test: BASO #; Value: 0.0; Range: 0.0-0.2; Units: K/mm3; Status: F Test: LARGE UNSTAINED CELL #; Value: 0.2; Range: 0.0-0.4; Units: K/mm3; Status: F Lab Order: Lipase; [facility]' 12/19/16 12:45 Test: LIPASE; Value: 160; Range: 73-393; Units: U/L; Status: F Lab Order: Liver Profile; [facility] 12/19/16 12:45 Test: AST/SGOT; Value: 24; Range: 15-37; Units: U/L; Status: F Test: ALT/SGPT; Value: 43; Range: 12-78; Units: U/L; Status: F Test: ALKALINE PHOSPHATASE; Value: 71; Range: 45-117; Units: U/L; Status: F Test: BILIRUBIN,TOTAL; Value: 0.5; Range: 0.2-1.0; Units: MG/DL; Status: F Test: BILIRUBIN,DIRECT; Value: 0.1; Range: 0.0-0.2; Units: MG/DL; Status: F Test: TOTAL PROTEIN; Value: 7.2; Range: 6.4-8.2; Units: GM/DL; Status: F Test: ALBUMIN; Value: 4.0; Range: 3.2-5.2; Units: GM/DL; Status: F Test: ALBUMIN/GLOBULIN RATIO; Value: 1.25; Range: 1.00-1.93; Status: F Lab Order: UA; [facility] 12/19/16 14:35 Test: APPEARANCE, URINE; Value: CLEAR; Range: CLEAR; Status: F Test: COLOR, URINE; Value: STRAW; Range: YELLOW; Status: F Test: PH,URINE; Value: 6.0; Range: 5.0-9.0; Units: UNITS; Status: F Test: SPECIFIC GRAVITY URINE AUTO; Value: 1.004; Range: 1.002-1.035; Status: F Test: PROTEIN, URINE AUTO; Value: NEGATIVE; Range: NEGATIVE; Units: mg/dL; Status: F Test: GLUCOSE, URINE (UA) AUTO; Value: NEGATIVE; Range: NEGATIVE; Units: mg/dL; Status: F Test: KETONE, URINE AUTO; Value: NEGATIVE; Range: NEGATIVE; Units: mg/dL; Status: F Test: UROBILINOGEN, URINE AUTO; Value: 0.2; Range: 0.0-2.0; Units: mg/dL; Status: F Test: BILIRUBIN, URINE AUTO; Value: NEGATIVE; Range: NEGATIVE; Status: F Test: NITRITE, URINE AUTO; Value: NEGATIVE; Range: NEGATIVE; Status: F Test: LEUKOCYTE ESTERASE, URINE AUTO; Value: NEGATIVE; Range: NEGATIVE; Status: F Test: BLOOD, URINE BLOOD; Value: NEGATIVE; Range: NEGATIVE; Status: F Test: WBC, URINE AUTO; Value: 0; Range: 0-3; Units: /HPF; Status: F Test: RBC, URINE AUTO; Value: 1; Range: 0-3; Units: /HPF; Status: F Test: BACTERIA, URINE AUTO; Value: NEGATIVE; Range: NEGATIVE; Status: F Test: SQUAMOUS EPITHELIAL CELL UR AU; Value: 0; Range: 0-6; Units: /HPF; Status: F Test: HYALINE CAST, URINE AUTO; Value: 0; Range: 0-1; Units: /LPF; Status: F Lab Order: Urine Culture; SPEC'M 12/19/16 14:35 Test: URINE CULTURE; Value: URINE CULTURE RESULT NO GROWTH; Status: F Lab Order: AMYLASE; SPEC'M 12/19/16 12:45 Test: AMYLASE; Value: 62; Range: 25-115; Units: U/L; Status: F Radiology Order: CT ABD & PELVIS: No Contrast Test: CT ABD & PELVIS: No Contrast REASON FOR EXAMINATION: LUQ pain; CT study of the abdomen and pelvis without IV or oral but with oral contrast:; ; History: Left upper quadrant pain. No comparison studies.; ; Findings: Digital labor economics teacher radiographs are unremarkable. The lung bases are clear.; The liver and the spleen are normal in size and homogeneous in texture.; Gallbladder is mildly dilated, but otherwise unremarkable. No adrenal lesion is; seen. Pancreas is unremarkable. No retroperitoneal mass or adenopathy is seen.; There is no evidence of intrarenal calculus or hydronephrosis on either side. A; normal oral barium filled appendix is seen in the right central abdomen. Small; and large intestinal bowel loops are unremarkable. No obstructive lesion is; seen. Seminal vesicles, prostate and urinary bladder appear intact. There are a; few dystrophic calcifications in the prostate. No abdominal wall defect is seen.; No bony destructive lesion is observed.; ; Impression:; ; Mildly distended gallbladder, otherwise unremarkable CT study of the abdomen and; pelvis. Normal appendix seen.; ; ; Signed by; Karan Hill MD 12/20/2016 09:04 A; Radiology Order: Gallbladder US Test: Gallbladder US REASON FOR EXAMINATION: Biliary Colic; Abdominal upper quadrant ultrasound:; ; The gallbladder is distended. There is a non mobile gallbladder calculus in the; gallbladder neck. There is no gallbladder wall thickening or pericholecystic; fluid. There is no tenderness to transducer pressure.; ; There is no intrahepatic biliary duct dilatation. The common biliary duct; measures 6.1 mm diameter which is upper normal.; ; The pancreas is obscured by bowel.; ; There is no right renal hydronephrosis or calculus. Right kidney is normal size; 12.3 cm cranial caudad.; ; ; Signed by; Ramesh Yost MD 12/20/2016 04:14 P; Outcome: 19:22 Discharge ordered by Provider. dt4 19:39 Discharge Assessment: Patient awake, alert and oriented x 3. No cognitive and/or [facility] functional deficits noted. Patient verbalized understanding of disposition instructions. patient administered narcotics - no. The following High Risk Discharge criteria are identified: None. Discharged to home ambulatory, with significant other. Condition: good Condition: stable Condition: improved. Discharge instructions given to patient, Instructed on discharge instructions, follow up and referral plans. Demonstrated understanding of instructions, Pt was receptive of discharge instructions/ teaching. CT Study completed. Ultrasound Study completed. Property :Personal belongings accompany Pt. 19:42 Patient left the ED. [facility] Signatures: Dispatcher [employer] EDMS Shakila Andrade, READING SPECIALIST READING SPECIALIST jam1 Charito Pillai,RN RN kr3 Georges Quintero, READING SPECIALIST READING SPECIALIST kb5 Arleth Crump PA-C PA-C ef1 Smitha MoratayaRN RN dsf Shakila DaviesRN RN cj Shante Chandler Gainslee gr2 Angelica Gonzalez PA-C PA-C dt4 Sarah Quiroz jls1 Kilo Kamara,CHANEL RN jf3 Kate Trent Corrections: (The following items were deleted from the chart) 14:47 14:47 General: pt refused IV and IV medications. dsf dsf Chart Complete MTDD
--- NOTE | 2016-12-21 20:42 | EDDOCDS ---
Physician Documentation [facility] Name: Karan Mejía Age: 46 yrs Sex: Male : 1970 Arrival Date: 12/19/2016 Time: 12:09 Bed I5 / M5 Private MD: NO PRIMARY PHYSICIAN, . Disposition: 12/19/16 19:22 Discharged to Home/Self Care. Impression: Other abdominal pain - llq, Diarrhea, unspecified. - Condition is Stable. - Discharge Instructions: Abdominal Pain, Adult, Diarrhea. - Referral List Call for Appointment, Medication Reconciliation, Local Pharmacy Hours form. - Follow up: Emergency Department; When: As needed; Reason: Worsening of conditions. Follow up: [facility]; When: As needed; Reason: Wound/Symptom Recheck, Recheck today's complaints, Worsening of conditions, Continuance of care. [facility]; When: Call to arrange an appointment; Reason: Recheck today's complaints, Continuance of care, To establish care. - Problem is new. - Symptoms are unchanged. - Notes: PLEASE CALL THE PRIMARY CAREOFFICE AND SCHEDULE AN APPOINTMENT TO BE SEEN. IT IS IMPORTANT TO HAVE A PRIMARY CARE PROVIDER TO FOLLOW UP WITH AFTER ANY EMERGENCY ROOM VISIT. ANY WORSENING OF SYMPTOMS, PLEASE RETURN TO THE ER. Historical: - Allergies: no known allergies; - Home Meds: 1. none - PMHx: none; - PSHx: none; - Social history: Smoking status: Patient uses tobacco products, heavy tobacco smoker. No barriers to communication noted, The patient speaks fluent Slovak. - Family history: Not pertinent. - : The pt / caregiver states he / she is not on anticoagulants. Home medication list is obtained from the patient. - Exposure Risk Screening:: None identified. Vital Signs: 12/19 12:11 BP 113 / 79; Pulse 73; Resp 18 S; Temp 97.6(O); Pulse Ox 99% on R/A; Weight 79.38 kg / gr2 175 lbs (R); Height 5 ft. 8 in. (172.72 cm) (R); Pain 7/10; 17:36 BP 125 / 72; Pulse 72; Resp 20; Temp 98.0; Pulse Ox 99% ; Pain 4/10; jam1 19:32 BP 143 / 95; Pulse 75; Resp 20; Temp 99.8(TE); Pulse Ox 94% on R/A; Pain 0/10; kb5 12:11 Body Mass Index 26.61 (79.38 kg, 172.72 cm) gr2 MDM: 12:35 If pre-RCE wait time >60 minutes, inform reg. staff to do full reg ordered. ar2 12:35 Undress patient appropriately for examination ordered. ar2 12:36 BMP Ordered. EDMS 12:36 CBC with Diff Ordered. EDMS 12:36 Lipase Ordered. EDMS 12:36 Liver Profile Ordered. EDMS 12:37 GASTROINTESTINAL (GI) PANEL Ordered. EDMS 14:29 BMP Reviewed. ef1 14:29 CBC with Diff Reviewed. ef1 14:29 Lipase Reviewed. ef1 14:29 Liver Profile Reviewed. ef1 14:34 NS 0.9% 1000 ml IV at bolus once ordered. ef1 14:34 ketorolac 30 mg IVP once ordered. ef1 14:34 Ondansetron 4 mg IVP once ordered. ef1 14:35 CT ABD & PELVIS: No Contrast Ordered. EDMS 14:35 UA Ordered. EDMS 14:35 Urine Culture Ordered. EDMS 14:41 Financial registration complete. jls1 14:53 [facility] Payment Agreement was scanned into [employer] and attached to record. jls1 16:45 UA Reviewed. ef1 16:47 Gallbladder US Ordered. EDMS 17:05 AMYLASE Ordered. EDMS 18:56 ED course: DR. MALDONADO IN ROOM WITH PT AT THIS TIME.. dt4 12/20 15:45 T-Sheet-- Draft Copy was scanned into [employer] and attached to record. klr Administered Medications: 12/19 14:46 Not Given (Patient Refused): NS 0.9% 1000 ml IV at bolus once dsf 14:46 Not Given (Patient Refused): ketorolac 30 mg IVP once dsf 14:46 Not Given (Patient Refused): Ondansetron 4 mg IVP once dsf Signatures: Dispatcher [employer] EDMS Donavan Sanders PA-C PA-C ar2 Arleth Crump PA-C PA-C ef1 Shakila Davies RN RN [facility] Angelica Gonzalez PA-C PA-C dt4 Sarah Quiroz jls1 Kilo Kamara RN RN jf3 Kate Trent Desiree RN dsf The chart was reviewed and I authenticate all verbal orders and agree with the evaluation and treatment provided.Corrections: (The following items were deleted from the chart) 12:36 12:35 If pt is female >10yo <50yo order UCG ordered. ar2 sew 12:37 12:36 GASTROINTESTINAL (GI) PANEL+STORM ordered. EDMS EDMS 14:46 14:34 IV Saline Lock ordered. ef1 dsf 17:05 16:50 AMYLASE+LAB ordered. EDMS EDMS Attachments: 14:53 [facility] Payment Agreement jls1 12/20 15:45 T-Sheet-- Draft Copy klr Chart Complete MTDD
== END 2016-12-19 19:42 | disposition home or self-care (01) ==
LOC: M ED 12:09
DX: R10.32 Left lower quadrant pain (principal); R19.7 Diarrhea, unspecified; F17.200 Nicotine dependence, unspecified, uncomplicated
CPT/HCPCS: 36415; 74176; 76705; 80048; 80076; 81001; 82150; 83690; 85025; 87086; 99284; J1885; J2405